=== PATIENT | male | born 1980 | race African-American/Black ===

== ENCOUNTER 2022-06-15 19:10 | Emergency (ER) | payer MEDICAID ==
[~2022-06-15] VITALS: Ht 188 cm; Wt 113.4 kg
[2022-06-15 19:23] VITALS: BP_SYST 139
--- NOTE | 2022-06-15 19:29 | NUR ---
Patient triaged and placed in waiting room. VSS and patient appears in no acute distress at this time. Accompanied by SELF, awaiting available bed, and MD notified of need for MSE.
--- NOTE | 2022-06-15 21:49 | NUR ---
no answer x 1
--- NOTE | 2022-06-15 22:00 | NUR ---
no answer x 2
--- NOTE | 2022-06-15 22:15 | NUR ---
no answer x 3
== END 2022-06-15 23:00 | disposition left against medical advice (07) ==
LOC: SED 19:10
DX: R07.9 Chest pain, unspecified (principal); Z53.21 Procedure and treatment not carried out due to patient leaving prior to being seen by health care provider
CPT/HCPCS: 93005; 99281

== ENCOUNTER 2022-07-19 03:08 | Emergency (ER) | payer MEDICAID ==
[~2022-07-19] VITALS: Ht 188 cm; Wt 111.1 kg
[2022-07-19 03:26] VITALS: BP_SYST 131
[2022-07-19] MEDS ORDERED: KETOROLAC TROMETHAMINE 30 MG VIAL IM ONE (03:45)
[2022-07-19 04:12] LABS: ANION GAP 11 (5-15); CALCIUM 8.7 mg/dL (8.4-11.0); CHLORIDE 104 mmol/L (98-107); CREATININE 1.03 mg/dL (0.55-1.30); GFR AFRICAN AMERICAN 101 mL/min (>90); GLUCOSE 89 mg/dL (70-99); UREA NITROGEN, BLOOD 12 mg/dL (8-21)
[2022-07-19 04:36] LABS: BASOPHILS % (AUTO) 0.3 % (0.0-2.0); EOSINOPHILS # (AUTO) 0.1 K/uL (0.0-0.4); EOSINOPHILS % (AUTO) 0.9 % (0.0-4.0); HEMATOCRIT 41.6 % (36-54); HEMOGLOBIN 13.2 g/dL (14.0-18.0); LYMPHOCYTES # (AUTO) 2.7 K/uL (1.0-5.5); LYMPHOCYTES % (AUTO) 40.3 % (20.5-51.5); MEAN CORPUSCULAR HEMOGLOBIN 24 pg (27-31); MEAN CORPUSCULAR HGB CONC 32 % (32-36); MEAN CORPUSCULAR VOLUME 74 fL (79.0-98.0); MONOCYTES # (AUTO) 0.4 K/uL (0.0-1.0); MONOCYTES % (AUTO) 5.8 % (1.7-9.3); NEUTROPHILS # (AUTO) 3.5 K/uL (1.8-7.7); NEUTROPHILS % (AUTO) 52.7 % (40.0-70.0); PLATELET COUNT (AUTO) 240 K/uL (130-430); RED BLOOD CELL COUNT(AUTO) 5.61 MIL/uL (4.2-6.2); RED CELL DISTRIBUTION WIDTH 16.1 % (9.0-15.0); WHITE BLOOD COUNT (AUTO) 6.7 K/uL (4.8-10.8)
[2022-07-19] MEDS ORDERED: IBUP-1969 PO (04:46)
[2022-07-19 04:57] VITALS: BP_SYST 122
[2022-07-19] MEDS ORDERED: OMEP40CA20 PO ×2 (12:50→12:53)
[2022-07-19] MEDS ORDERED: [UNRECOGNIZED DRUG - CODE] PO ×2 (12:50→12:53)
[2022-07-19] MEDS ORDERED: SUCR1TAB2 PO (12:52)
== END 2022-07-19 03:26 | disposition home or self-care (01) ==
LOC: SED 03:08
DX: R07.9 Chest pain, unspecified (principal); M79.601 Pain in right arm; F17.200 Nicotine dependence, unspecified, uncomplicated; F12.90 Cannabis use, unspecified, uncomplicated; Z79.899 Other long term (current) drug therapy
CPT/HCPCS: 99285; 71045; 80048; 85025; 84484; 36415; 93005; 96372; J1885

== ENCOUNTER 2022-07-19 10:50 | Emergency (ER) | payer MEDICAID ==
[~2022-07-19] VITALS: Ht 188 cm; Wt 81.6 kg
[~2022-07-19 10:50] MED LIST: IBUP-1969 PO
[2022-07-19 11:13] VITALS: BP_SYST 156
[2022-07-19] MEDS ORDERED: FAMOTIDINE PF 20 MG/2 ML VIAL IVP ONE (11:15)
[2022-07-19] MEDS ORDERED: KETOROLAC TROMETHAMINE 15 MG VIAL IVP ONE (11:15)
[2022-07-19] MEDS ORDERED: MAG HYDROX/AL HYDROX/SIMETH 30 ML, LIDOCAINE VISCOUS 2% 15ML (PO) 15 ML, DICYCLOMINE HC... PO ONE ×3 (11:15)
[2022-07-19 11:22] LABS: BASOPHILS % (AUTO) 0.6 % (0.0-2.0); EOSINOPHILS # (AUTO) 0.1 K/uL (0.0-0.4); EOSINOPHILS % (AUTO) 0.8 % (0.0-4.0); HEMATOCRIT 43.3 % (36-54); HEMOGLOBIN 13.6 g/dL (14.0-18.0); LYMPHOCYTES # (AUTO) 2.3 K/uL (1.0-5.5); LYMPHOCYTES % (AUTO) 34.1 % (20.5-51.5); MEAN CORPUSCULAR HEMOGLOBIN 23 pg (27-31); MEAN CORPUSCULAR HGB CONC 32 % (32-36); MEAN CORPUSCULAR VOLUME 74 fL (79.0-98.0); MONOCYTES # (AUTO) 0.5 K/uL (0.0-1.0); MONOCYTES % (AUTO) 7.1 % (1.7-9.3); NEUTROPHILS % (AUTO) 57.4 % (40.0-70.0); PLATELET COUNT (AUTO) 236 K/uL (130-430); RED BLOOD CELL COUNT(AUTO) 5.84 MIL/uL (4.2-6.2); RED CELL DISTRIBUTION WIDTH 15.9 % (9.0-15.0); WHITE BLOOD COUNT (AUTO) 6.9 K/uL (4.8-10.8)
[2022-07-19 11:30] LABS: CALCIUM 8.9 mg/dL (8.4-11.0); CREATININE 1.05 mg/dL (0.55-1.30)
[2022-07-19 11:36] LABS: ALBUMIN 4.2 g/dL (3.4-4.8); TOTAL BILIRUBIN 0.7 mg/dL (0.0-1.0)
[2022-07-19] MEDS ORDERED: OMEP40CA20 PO ×2 (12:50→12:53)
[2022-07-19] MEDS ORDERED: [UNRECOGNIZED DRUG - CODE] PO ×2 (12:50→12:53)
[2022-07-19] MEDS ORDERED: SUCR1TAB2 PO (12:52)
[2022-07-19] MEDS ORDERED: MORPHINE 4 MG INJ. 4 MG/ML VIAL IVP ONE (13:00)
[2022-07-19] MEDS ORDERED: ONDANSETRON HCL 4 MG/2 ML VIAL IVP ONE (13:00)
[2022-07-19 13:19] VITALS: BP_SYST 167
== END 2022-07-19 13:37 | disposition home or self-care (01) ==
LOC: SED 10:50
DX: K21.9 Gastro-esophageal reflux disease without esophagitis (principal); R07.89 Other chest pain; R06.02 Shortness of breath; M25.511 Pain in right shoulder; F17.210 Nicotine dependence, cigarettes, uncomplicated; Z79.899 Other long term (current) drug therapy
CPT/HCPCS: 99285; 96374; 96375; 71045; 80053; 82550; 83880; 85025; 84484; 36415; 93005; J2001; J3490; J1885; J2405; J2270

== ENCOUNTER 2022-07-20 21:17 | Emergency (ER) | payer MEDICAID ==
[~2022-07-20 21:17] MED LIST changes: +OMEP40CA20 PO; +SUCR1TAB2 PO; +[UNRECOGNIZED DRUG - CODE] PO
== END 2022-07-20 21:45 | disposition left against medical advice (07) ==
LOC: SED 21:17
DX: R07.9 Chest pain, unspecified (principal); Z53.21 Procedure and treatment not carried out due to patient leaving prior to being seen by health care provider

== ENCOUNTER 2022-11-23 21:45 | Emergency (ER) | payer MEDICAID ==
[~2022-11-23] VITALS: Ht 188 cm; Wt 108.9 kg
[2022-11-23 22:01] VITALS: BP_SYST 147; RESP 18; TEMP 98.3; O2SAT 99
[2022-11-23] MEDS ORDERED: LISINOPRIL 10 MG TABLET (PRINIVIL) PO ONE (22:45)
[2022-11-23] MEDS ORDERED: ASPIRIN 325 MG TABLET PO ONE (22:45)
[2022-11-23 23:07] VITALS: BP_SYST 137; RESP 18; TEMP 98.3; O2SAT 99
[2022-11-23 23:15] LABS: BASOPHILS # (AUTO) 0.1 K/uL (0.0-0.2); BASOPHILS % (AUTO) 0.6 % (0.0-2.0); EOSINOPHILS # (AUTO) 0.1 K/uL (0.0-0.4); EOSINOPHILS % (AUTO) 0.6 % (0.0-4.0); HEMATOCRIT 43.9 % (36-54); HEMOGLOBIN 13.9 g/dL (14.0-18.0); LYMPHOCYTES # (AUTO) 3.4 K/uL (1.0-5.5); LYMPHOCYTES % (AUTO) 34.8 % (20.5-51.5); MEAN CORPUSCULAR HEMOGLOBIN 23 pg (27-31); MEAN CORPUSCULAR HGB CONC 32 % (32-36); MEAN CORPUSCULAR VOLUME 74 fL (79.0-98.0); MONOCYTES # (AUTO) 0.6 K/uL (0.0-1.0); MONOCYTES % (AUTO) 5.8 % (1.7-9.3); NEUTROPHILS # (AUTO) 5.6 K/uL (1.8-7.7); NEUTROPHILS % (AUTO) 58.2 % (40.0-70.0); PLATELET COUNT (AUTO) 277 K/uL (130-430); RED BLOOD CELL COUNT(AUTO) 5.95 MIL/uL (4.2-6.2); RED CELL DISTRIBUTION WIDTH 16.8 % (9.0-15.0); WHITE BLOOD COUNT (AUTO) 9.6 K/uL (4.8-10.8)
[2022-11-23 23:42] LABS: ALANINE AMINOTRANSFERASE 16 U/L (12-78); ALBUMIN 3.9 g/dL (3.4-4.8); ANION GAP 13 (5-15); ASPARTATE AMINOTRANSFERASE 22 U/L (10-37); CALCIUM 8.9 mg/dL (8.4-11.0); CARBON DIOXIDE 24 mmol/L (23-29); CHLORIDE 102 mmol/L (98-107); CREATININE 0.96 mg/dL (0.55-1.30); GFR AFRICAN AMERICAN 109 mL/min (>90); GFR NON AFRICAN-AMERICAN 90 mL/min (>90); GLUCOSE 94 mg/dL (74-106); POTASSIUM 3.6 mmol/L (3.5-5.1); SODIUM SERUM 139 mmol/L (136-145); TOTAL BILIRUBIN 0.8 mg/dL (0.0-1.0); TOTAL PROTEIN, SERUM 7.8 g/dL (6.4-8.3); UREA NITROGEN, BLOOD 12 mg/dL (8-21)
== END 2022-11-23 23:08 | disposition left against medical advice (07) ==
LOC: SED 21:45
DX: R07.2 Precordial pain (principal); R03.0 Elevated blood-pressure reading, without diagnosis of hypertension; F17.200 Nicotine dependence, unspecified, uncomplicated; R00.2 Palpitations; R06.02 Shortness of breath; Z79.899 Other long term (current) drug therapy
CPT/HCPCS: 36415; 71045; 80053; 83880; 84484; 85025; 85379; 93005; 99285

== ENCOUNTER 2023-04-28 01:44 | Emergency (ER) | payer MEDICAID ==
[~2023-04-28] VITALS: Ht 188 cm; Wt 65.8 kg
[2023-04-28 02:05] VITALS: BP_SYST 140; PULSE 91; RESP 19; TEMP 97.7; O2SAT 99
[2023-04-28] MEDS: ASPIRIN 325 MG TABLET PO ONE (02:29)
[2023-04-28] MEDS: NITROGLYCERIN 0.4 MG TAB.SUBL SL ONE (03:02)
[2023-04-28 03:11] LABS: BASOPHILS # (AUTO) 0.1 K/uL (0.0-0.2); BASOPHILS % (AUTO) 1.1 % (0.0-2.0); EOSINOPHILS # (AUTO) 0.1 K/uL (0.0-0.4); EOSINOPHILS % (AUTO) 0.7 % (0.0-4.0); HEMATOCRIT 41.1 % (36-54); HEMOGLOBIN 13.3 g/dL (14.0-18.0); LYMPHOCYTES # (AUTO) 3.2 K/uL (1.0-5.5); LYMPHOCYTES % (AUTO) 40.6 % (20.5-51.5); MEAN CORPUSCULAR HEMOGLOBIN 24 pg (27-31); MEAN CORPUSCULAR HGB CONC 33 % (32-36); MEAN CORPUSCULAR VOLUME 75 fL (79.0-98.0); MONOCYTES # (AUTO) 0.4 K/uL (0.0-1.0); MONOCYTES % (AUTO) 4.7 % (1.7-9.3); NEUTROPHILS # (AUTO) 4.1 K/uL (1.8-7.7); NEUTROPHILS % (AUTO) 52.9 % (40.0-70.0); PLATELET COUNT (AUTO) 270 K/uL (130-430); RED CELL DISTRIBUTION WIDTH 16.1 % (9.0-15.0); WHITE BLOOD COUNT (AUTO) 7.8 K/uL (4.8-10.8)
[2023-04-28] MEDS: MORPHINE 4 MG INJ. 4 MG/ML VIAL IVP ONE (03:18)
[2023-04-28] MEDS: ONDANSETRON HCL 4 MG/2 ML VIAL IVP ONE (03:20)
[2023-04-28 03:38] LABS: ALANINE AMINOTRANSFERASE 37 U/L (12-78); ALBUMIN 3.6 g/dL (3.4-4.8); ANION GAP 10 (5-15); ASPARTATE AMINOTRANSFERASE 26 U/L (10-37); CALCIUM 8.5 mg/dL (8.4-11.0); CARBON DIOXIDE 24 mmol/L (23-29); CHLORIDE 109 mmol/L (98-107); CREATININE 1.17 mg/dL (0.55-1.30); GFR AFRICAN AMERICAN 87 mL/min (>90); GLUCOSE 100 mg/dL (74-106); POTASSIUM 3.9 mmol/L (3.5-5.1); SODIUM SERUM 143 mmol/L (136-145); TOTAL BILIRUBIN 0.3 mg/dL (0.0-1.0); TOTAL PROTEIN, SERUM 7.3 g/dL (6.4-8.3); UREA NITROGEN, BLOOD 13 mg/dL (8-21)
[2023-04-28 03:39] LABS: GFR NON AFRICAN-AMERICAN 72 mL/min (>90)
[2023-04-28 03:42] VITALS: BP_SYST 147; PULSE 78; RESP 18; TEMP 97.2; O2SAT 98
[2023-04-28 03:45] LABS: ALCOHOL, BLOOD < 3 mg/dL (<10); BILIRUBIN,DIRECT 0.1 mg/dL (0.0-0.3)
[2023-04-28] MEDS ORDERED: iohexoL 350 mgI/mL, 100 ML INFUS..BTL IV ONE (04:17)
== END 2023-04-28 03:42 | disposition left against medical advice (07) ==
LOC: SED 01:44
DX: R07.89 Other chest pain (principal); R00.2 Palpitations; I10 Essential (primary) hypertension; Z79.899 Other long term (current) drug therapy
CPT/HCPCS: 99285; 96374; 71045; 96375; 80076; 80048; 83880; 85025; 84484; 36415; 93005; G0482; Q9967; J2405; J2270